=== PATIENT | female | born 1965 | race Caucasian/White ===

== ENCOUNTER 2023-05-13 16:13 | Emergency (ER) | payer OTHER ==
[~2023-05-13] VITALS: Ht 165.1 cm; Wt 60.0 kg
[2023-05-13 16:21] VITALS: O2SAT 95
[2023-05-13 19:38] VITALS: BP 122/85; PULSE 84; RESP 16; TEMP 98
== END 2023-05-13 19:38 | disposition home or self-care (01) ==
LOC: ER 16:13
DX: F10.129 Alcohol abuse with intoxication, unspecified (principal); Y90.0 Blood alcohol level of less than 20 mg/100 ml
CPT/HCPCS: 99283